=== PATIENT | female | born 2000 | race Caucasian/White ===

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

== ENCOUNTER 2022-05-24 15:20 | Observation (INO) | payer MEDICAID ==
[~2022-05-24] VITALS: Ht 144.8 cm; Wt 55.8 kg
[2022-05-24 17:28] VITALS: BP 114/70
[2022-05-24] MEDS ORDERED: CELESTONE SOLUSPAN 6 MG/ML 5ML VIAL IM SCH (17:30)
[2022-05-24] MEDS: LACTATED RINGERS 1000ML 1,000 ML IV SCH ×2 (17:41→18:16)
[2022-05-24 17:43] LABS: APPEARANCE,URINE CLEAR (CLEAR); BILIRUBIN,URINE NEGATIVE (NEGATIVE); COLOR,URINE LIGHT-YELLOW (YELLOW); GLUCOSE, URINE (UA) NEGATIVE (NEGATIVE); KETONES,URINE NEGATIVE (NEGATIVE); LEUKOCYTE ESTERASE ,URINE 75 Leu/uL (NEGATIVE); NITRATE,URINE NEGATIVE (NEGATIVE); OCCULT BLOOD,URINE NEGATIVE (NEGATIVE); PH,URINE 5.5 (5.0-8.0); PROTEIN,URINE NEGATIVE (NEGATIVE); UROBILINOGEN,URINE 0.2 mg/dL (0.2-1.0)
[2022-05-24 17:45] LABS: BACTERIA,URINE RARE /HPF (None Seen); MUCUS,URINE RARE LPF (None Seen); SQUAMOUS EPITHELIAL CELL,UR RARE /HPF (0-2)
[2022-05-24 17:50] LABS: AMPHET/METH SCREEN,URINE NEGATIVE (NEGATIVE); BARBITURATE SCREEN, URINE NEGATIVE (NEGATIVE); BENZODIAZEPINES SCREEN,URINE NEGATIVE (NEGATIVE); CANNABINOID SCREEN,URINE NEGATIVE (NEGATIVE); COCAINE SCREEN,URINE NEGATIVE (NEGATIVE); OPIATE SCREEN,URINE NEGATIVE (NEGATIVE); PHENCYCLIDINE SCREEN,URINE NEGATIVE (NEGATIVE)
[2022-05-25] MEDS ORDERED: LACTATED RINGERS 1000ML 1,000 ML IV PRN (01:30)
[2022-05-25] MEDS ORDERED: PHARMACY COMMUNICATION MISC SCH (08:30)
[2022-05-25] MEDS ORDERED: PANTOPRAZOLE 40 MG TAB DR PO SCH (09:00)
== END 2022-05-25 11:58 | disposition short-term general hospital (02) ==
LOC: EDH 15:20 → LDH 15:21
PROVIDERS: ADMIT Obstetrics & Gynecology; ATTEND Obstetrics & Gynecology
DX: O42.913 Preterm premature rupture of membranes, unspecified as to length of time between rupture and onset of labor, third trimester (principal); Z3A.29 29 weeks gestation of pregnancy; Z79.899 Other long term (current) drug therapy
CPT/HCPCS: 96372; 96361 ×4; 59025; 96360; 80305; 87088; 81001; 76815 ×2; G0378 ×20; G0379; J7120 ×3; J0702

== ENCOUNTER 2022-06-25 12:23 | Observation (INO) | payer MEDICAID ==
[2022-06-25 13:10] LABS: APPEARANCE,URINE CLOUDY (CLEAR); BILIRUBIN,URINE NEGATIVE (NEGATIVE); COLOR,URINE LIGHT-YELLOW (YELLOW); GLUCOSE, URINE (UA) NEGATIVE (NEGATIVE); KETONES,URINE NEGATIVE (NEGATIVE); LEUKOCYTE ESTERASE ,URINE NEGATIVE Leu/uL (NEGATIVE); NITRATE,URINE NEGATIVE (NEGATIVE); OCCULT BLOOD,URINE NEGATIVE (NEGATIVE); PH,URINE 7.5 (5.0-8.0); PROTEIN,URINE NEGATIVE (NEGATIVE); UROBILINOGEN,URINE 0.2 mg/dL (0.2-1.0)
[2022-06-25 13:15] LABS: MUCUS,URINE RARE LPF (None Seen); RBC,URINE 0-1 /HPF (0-1); SQUAMOUS EPITHELIAL CELL,UR MOD /HPF (0-2)
== END 2022-06-25 15:55 | disposition home or self-care (01) ==
LOC: LDH 12:23
PROVIDERS: ADMIT Obstetrics & Gynecology; ATTEND Obstetrics & Gynecology
DX: O36.8130 Decreased fetal movements, third trimester, not applicable or unspecified (principal); O42.913 Preterm premature rupture of membranes, unspecified as to length of time between rupture and onset of labor, third trimester; Z3A.34 34 weeks gestation of pregnancy
CPT/HCPCS: 59025; 81001; 76819; G0378 ×3; G0379

== ENCOUNTER 2022-07-01 23:14 | Observation (INO) | payer MEDICAID ==
[~2022-07-01] VITALS: Ht 144.8 cm; Wt 57.2 kg
[2022-07-01 23:15] VITALS: BP 119/72
[2022-07-01 23:44] LABS: APPEARANCE,URINE CLOUDY (CLEAR); BILIRUBIN,URINE NEGATIVE (NEGATIVE); COLOR,URINE YELLOW (YELLOW); GLUCOSE, URINE (UA) NEGATIVE (NEGATIVE); KETONES,URINE 20 mg/dL (NEGATIVE); LEUKOCYTE ESTERASE ,URINE 250 Leu/uL (NEGATIVE); NITRATE,URINE NEGATIVE (NEGATIVE); OCCULT BLOOD,URINE NEGATIVE (NEGATIVE); PH,URINE 5.5 (5.0-8.0); PROTEIN,URINE 10 mg/dL (NEGATIVE); UROBILINOGEN,URINE 0.2 mg/dL (0.2-1.0)
[2022-07-02] MEDS ORDERED: LACTATED RINGERS 1000ML IV SCH
[2022-07-02 00:06] LABS: MUCUS,URINE FEW LPF (None Seen); SQUAMOUS EPITHELIAL CELL,UR MANY /HPF (0-2)
== END 2022-07-02 00:55 | disposition home or self-care (01) ==
LOC: EDH 23:14 → LDH 23:15
PROVIDERS: ADMIT Obstetrics & Gynecology; ATTEND Obstetrics & Gynecology
DX: O62.9 Abnormality of forces of labor, unspecified (principal); Z3A.35 35 weeks gestation of pregnancy
CPT/HCPCS: 87088; 81001; 96360; G0379; G0378

== ENCOUNTER 2022-07-17 12:39 | Observation (INO) | payer MEDICAID ==
[2022-07-17] MEDS: LACTATED RINGERS 1000ML IV PRN ×2 (13:20→14:05)
[2022-07-17 13:51] LABS: APPEARANCE,URINE CLEAR (CLEAR); BILIRUBIN,URINE NEGATIVE (NEGATIVE); COLOR,URINE YELLOW (YELLOW); GLUCOSE, URINE (UA) NEGATIVE (NEGATIVE); KETONES,URINE NEGATIVE (NEGATIVE); LEUKOCYTE ESTERASE ,URINE 25 Leu/uL (NEGATIVE); NITRATE,URINE NEGATIVE (NEGATIVE); OCCULT BLOOD,URINE NEGATIVE (NEGATIVE); PH,URINE 5.5 (5.0-8.0); PROTEIN,URINE 10 mg/dL (NEGATIVE); UROBILINOGEN,URINE 0.2 mg/dL (0.2-1.0)
[2022-07-17 13:58] LABS: BACTERIA,URINE RARE /HPF (None Seen); MUCUS,URINE RARE LPF (None Seen); SQUAMOUS EPITHELIAL CELL,UR MOD /HPF (0-2)
== END 2022-07-17 17:59 | disposition home or self-care (01) ==
LOC: LDH 12:39
PROVIDERS: ADMIT Obstetrics & Gynecology; ATTEND Obstetrics & Gynecology
DX: O62.9 Abnormality of forces of labor, unspecified (principal); O26.893 Other specified pregnancy related conditions, third trimester; R20.0 Anesthesia of skin; Z3A.37 37 weeks gestation of pregnancy
CPT/HCPCS: 96361 ×2; 59025; 96360; 81001; 76819; G0378 ×5; G0379; J7120

== ENCOUNTER 2024-06-11 18:23 | Emergency (ER) | payer MEDICAID ==
[~2024-06-11] VITALS: Ht 149.9 cm; Wt 56.7 kg
[2024-06-11] MEDS: FAMOTIDINE 20MG VIAL IV STA (18:51)
[2024-06-11] MEDS: 0.9%NACL 1000ML 1,000 ML IV STA (18:51)
[2024-06-11] MEDS: ondanSETRON 4MG INJ IVP STA (18:51)
--- NOTE | 2024-06-11 19:05 | ERN ---
ED Note History of Present Illness Stated Complaint: , VOMITING, DIZZINESS Chief Complaint: Nausea,Vomiting,Diarrhea Time Seen by MD: 18:25 Time Seen by Midlevel: 18:30 Dictation: 24-year-old female coming in for nausea vomiting onset today. Patient states she is 14 weeks . LMP is 03/04/2024. Patient states she has done here visiting from [place], states her OBGYN is from there. Patient states she has also had diarrhea for the last couple of days. States today she has had one episode of loose stool, nonbloody. Surgical history of the tonsillectomy and appendectomy. Denies any complaints, no abdominal pain, no vaginal bleeding vaginal discharge. Allergies: Coded Allergies: montelukast (Unverified Allergy, Intermediate, nosebleeds, 05/24/13) Past Medical History Past Medical History: No Pertinent History Surgical History: Appendectomy, Tonsillectomy : 1 Para: 0 Aborts: 0 Review of System Dictation Constitutional: Negative for fever,chills, and weight loss Eyes: Negative for injury, pain,redness, and discharge ENT: Negative for injury,pain or swelling Cardiovascular: Negative for chest pain, palpitations, and edema Respiratory: Negative for shortness of breath, cough, and wheezing, Abdomen/GI: Negative for abdominal pain, positive for nausea, vomiting, diarrhea, Back: Negative for injury and pain : Negative for injury, bleeding and discharge MS/Extremity: Negative for injury and deformity Skin: Negative for rash, and discoloration Neuro: Negative for headache, weakness, numbness, tingling, and seizure Psych: Negative for suicide ideation, homicidal ideation, and hallucinations Review of Systems: was completed Initial Vital Sign VS Vital Signs Date Time Temp Pulse Resp B/P (MAP) Pulse Ox O2 Delivery O2 Flow Rate FiO2 06/11/24 18:35 98.1 107 16 105/76 99 Room Air 0 06/11/24 19:15 21 Physical Exam Dictation General: awake, alert, NAD Head/Face: Normocephalic, atraumatic Eyes: PERRL, EOMI, vision at baseline ENT: oral cavity clear, TMs clear, no signs of infection Neck: Trachea midline, supple, no nuchal rigidity Cardiovascular: RRR, normal S1/S2, No MRGs, no JVD Respiratory: CTAB, no respiratory distress, No rales or wheezes Abdomen: Soft, non-tender, non-distended, normal bowel sounds, no guarding or rebound. Skin: Warm, dry, normal turgor, no rash MS/Extremity: Pulses equal, no cyanosis, neurovascular intact, FROM Neuro: COAx4, GCS 15, strength 5/5, CN 2-12 intact, normal cerebellar exam, normal gait, Psych: Normal behavior, mood, and affect normal Results (Laboratory/Radiology) Laboratory/Radiology Laboratory Tests Test 06/11/24 18:56 White Blood Count 11.5 K/uL (4.8-10.8) H Red Blood Count 4.86 MIL/uL (4.00-5.50) Hemoglobin 12.9 g/dL (12.0-16.0) Hematocrit 38.8 % (36-48) Mean Corpuscular Volume 79.8 fL (79-99) Mean Corpuscular Hemoglobin 26.5 pg (27.0-33.0) L Mean Corpuscular Hemoglobin Concent 33.2 g/dL (32.0-36.0) Red Cell Distribution Width 13.5 % (11.0-15.5) Platelet Count 332 K/uL (130-400) Mean Platelet Volume 11.2 fL (7.5-10.5) H Immature Granulocyte % (Auto) 0.3 % (0-1) Neutrophils (%) (Auto) 81.5 % (40.0-77.0) H Lymphocytes (%) (Auto) 11.9 % (21.0-51.0) L Monocytes (%) (Auto) 6.1 % (3.0-13.0) Eosinophils (%) (Auto) 0.0 % (0.0-8.0) Basophils (%) (Auto) 0.2 % (0.0-5.0) Neutrophils # (Auto) 9.4 K/uL (1.8-7.7) H Lymphocytes # (Auto) 1.4 K/uL (1.0-4.8) Monocytes # (Auto) 0.7 K/uL (0.1-1.0) Eosinophils # (Auto) 0.00 K/uL (0.00-0.70) Basophils # (Auto) 0.02 K/uL (0.00-0.20) Absolute Immature Granulocyte (auto 0.04 K/uL (0-1) Nucleated Red Blood Cells 0.0 % (0.0-0.19) Urine Color YELLOW (YELLOW) Urine Appearance TURBID (CLEAR) Urine pH 5.5 (5.0-8.0) Urine Specific [place] 1.031 (1.001-1.031) Urine Protein 50 mg/dL (NEGATIVE) H Urine Glucose (UA) NEGATIVE mg/dL (NEGATIVE) Urine Ketones 150 mg/dL (NEGATIVE) H Urine Occult Blood NEGATIVE (NEGATIVE) Urine Nitrate NEGATIVE (NEGATIVE) Urine Bilirubin NEGATIVE mg/dL (NEGATIVE) Urine Urobilinogen 0.2 mg/dL (0.2-1.0) Urine Leukocyte Esterase 500 [place]/uL (NEGATIVE) H Urine RBC 2-5 /HPF (0-1) H Urine WBC >100 /HPF (0-1) H Urine WBC Clumps (Auto) RARE /HPF (0-1) Urine Squamous Epithelial Cells MOD /HPF (0-2) Urine Bacteria FEW /HPF (None Seen) Sodium Level 136 mmol/L (136-145) Potassium Level 3.6 mmol/L (3.5-5.1) Chloride Level 101 mmol/L (101-111) Carbon Dioxide Level 26 mmol/L (21-32) Blood Urea Nitrogen 5 mg/dL (7-18) L Creatinine 0.5 mg/dL (0.5-1.0) Glomerular Filtration Rate Calc 135 mL/min (>90) Random Glucose 91 mg/dL (70-105) Total Calcium 9.3 mg/dL (8.5-10.1) Total Bilirubin 0.4 mg/dL (0.2-1.0) Direct Bilirubin 0.1 mg/dL (0.0-0.3) Aspartate Amino Transf (AST/SGOT) 16 U/L (10-37) Alanine Aminotransferase (ALT/SGPT) 22 U/L (12-78) Alkaline Phosphatase 97 U/L (50-136) Total Protein 8.3 g/dL (6.0-8.3) Albumin 3.7 g/dL (3.5-5.0) Lipase 30 U/L (16-77) Labs Reviewed?: Yes ED Course ED Course Orders Procedure Category Date Status Time Cbc With Differential LAB 06/11/24 Complete 18:37 Basic Metabolic Panel LAB 06/11/24 Complete 18:37 Hepatic Function Panel LAB 06/11/24 Complete 18:37 Lipase LAB 06/11/24 Complete 18:37 Urinalysis Profile LAB 06/11/24 Complete 18:37 0.9%Nacl 1000ml (Ns PHA 06/11/24 Complete 1000ml) 18:37 Ondansetron 4mg Inj PHA 06/11/24 Complete (Zofran 4mg Inj) 18:37 Famotidine 20mg Vial PHA 06/11/24 Complete (Pepcid 20mg Vial) 18:37 *Nursing CPOE 06/11/24 Transmitted Communication: 18:41 Culture Urine EULA 06/11/24 In Process 19:12 Ceftriaxone 1g Vial PHA 06/11/24 Complete (Rocephine 1g Inj) 19:21 Us Ob >14 Weeks 06/11/24 Taken 19:24 Current Medications Medications (Trade) Dose Ordered Sig/Chantale Route PRN Reason Start Time Stop Time Status Last Admin Dose Admin Ceftriaxone Sodium (ROCEphine 1G INJ) 1 gm ONCE STAT IVPB 06/11/24 19:21 06/11/24 19:23 DC 06/11/24 19:47 Famotidine (Pepcid 20mg Vial) 20 mg ONCE STAT IV 06/11/24 18:37 06/11/24 18:40 DC 06/11/24 18:51 Ondansetron HCl (zoFRAN 4MG INJ) 4 mg ONCE STAT IVP 06/11/24 18:37 06/11/24 18:40 DC 06/11/24 18:51 Sodium Chloride 1,000 ml @ 1,000 mls/hr Q1H STAT IV 06/11/24 18:37 06/11/24 19:36 DC 06/11/24 18:51 Vital Signs Date Time Temp Pulse Resp B/P (MAP) Pulse Ox O2 Delivery O2 Flow Rate FiO2 06/11/24 19:15 98.1 80 17 111/63 100 Room Air* 0 21 06/11/24 18:35 98.1 107 16 105/76 99 Room Air 0 Medical Decision Making MDM MDM: 24-year-old female coming in for nausea vomiting onset today. Patient states she is 14 weeks . LMP is 03/04/2024. Patient states she has done here visiting from [place], states her OBGYN is from there. Patient states she has also had diarrhea for the last couple of days. States today she has had one episode of loose stool, nonbloody. Surgical history of the tonsillectomy and appendectomy. Denies any complaints, no abdominal pain, no vaginal bleeding vaginal discharge. 192, upon reassessment patient was now mentioning she was told yesterday she had placenta previa. Ultrasound ordered at this time. Differential diagnosis: Dehydration, electrolyte abnormality, EDIE Rationale: Tests considered and ordered secondary to shared decision making include: Previous outside records reviewed: Old ER visits. Risk of complication and/or morbidity or mortality of patient management: None Medications-Per medication reconciliation Need for hospitalization: Patient does not meet criteria for hospitalization. Need for emergency major/minor surgery: No There are no social concerns with this patient. Prescription drug management Prescriptions will include symptomatic care Patient's prior external medical records from other ER visits were reviewed by me as indicated. Prior testing and results from previous visits were reviewed. Prior tests were taken into account with medical decision making and resource utilization, independent historian/historians were used to obtain complete medical history. I independently interpreted the test that were performed, results were reviewed by me and considered findings on radiology if ordered. Medical management and examination interpretation discussions were had by me with other qualified healthcare professionals as indicated for the patient's care. Patient does have a urinary tract infection we started an infusion of Rocephin and the patient immediately noticed some chest pain and so EKG was obtained which showed normal sinus rhythm in the antibiotic was stopped. The patient says she feels better now the ultrasound today shows no placenta previa. I will discharge the patient from the emergency room with a prescription for Macrobid and a prescription for Zofran as well. DX & DISP Disposition: Discharge Departure Impression: Primary Impression: UTI (urinary tract infection) Condition: Stable Scripts Ondansetron (Ondansetron Odt) 4 Mg Tab.rapdis 1 TAB PO Q6HPRN PRN for nausea/vomiting for 4 Days, #16 TAB 0 Refills Prov: DINESH ROUSSEAU MD 06/11/24 Nitrofurantoin Monohyd/M-Cryst (Macrobid 100 mg Capsule) 100 Mg Capsule 1 CAP PO BID for 7 Days, #14 CAP 0 Refills Prov: DINESH ROUSSEAU MD 06/11/24 Additional Instructions: If your nausea and vomiting does not improve with the antibiotic please come [place] to the emergency room. In addition continued to have your regular appointments with your data entry technician to monitor the placenta previa. Referrals: ENID NEFF (PCP) EMILY OSORIO NP June 11, 2024 19:05 DINESH ROUSSEAU MD June 11, 2024 20:56
[2024-06-11 19:08] LABS: APPEARANCE,URINE TURBID (CLEAR); BILIRUBIN,URINE NEGATIVE (NEGATIVE); COLOR,URINE YELLOW (YELLOW); GLUCOSE, URINE (UA) NEGATIVE (NEGATIVE); KETONES,URINE 150 mg/dL (NEGATIVE); LEUKOCYTE ESTERASE ,URINE 500 Leu/uL (NEGATIVE); NITRATE,URINE NEGATIVE (NEGATIVE); OCCULT BLOOD,URINE NEGATIVE (NEGATIVE); PH,URINE 5.5 (5.0-8.0); PROTEIN,URINE 50 mg/dL (NEGATIVE); UROBILINOGEN,URINE 0.2 mg/dL (0.2-1.0)
--- NOTE | 2024-06-11 19:09 | NUR ---
PT CARE ASSUMED AT THIS TIME
[2024-06-11 19:10] LABS: BASOPHILS # (AUTO) 0.02 K/uL (0.00-0.20); BASOPHILS % (AUTO) 0.2 % (0.0-5.0); HEMATOCRIT 38.8 % (36-48); IMMATURE GRANULOCYTE ABSOLUTE 0.04 K/uL (0-1); LYMPHOCYTES # (AUTO) 1.4 K/uL (1.0-4.8); LYMPHOCYTES % (AUTO) 11.9 % (21.0-51.0); MEAN CORPUSCULAR HEMOGLOBIN 26.5 pg (27.0-33.0); MEAN CORPUSCULAR HGB CONC 33.2 g/dL (32.0-36.0); MEAN CORPUSCULAR VOLUME 79.8 fL (79-99); MONOCYTES # (AUTO) 0.7 K/uL (0.1-1.0); MONOCYTES % (AUTO) 6.1 % (3.0-13.0); NEUTROPHILS # (AUTO) 9.4 K/uL (1.8-7.7); NEUTROPHILS % (AUTO) 81.5 % (40.0-77.0); PLATELET COUNT (AUTO) 332 K/uL (130-400); RED BLOOD CELL COUNT(AUTO) 4.86 MIL/uL (4.00-5.50); RED CELL DISTRIBUTION WIDTH 13.5 % (11.0-15.5); WHITE BLOOD COUNT (AUTO) 11.5 K/uL (4.8-10.8)
[2024-06-11 19:12] LABS: ADD UA MICROSCOPIC YES
[2024-06-11 19:14] LABS: CREATININE 0.5 mg/dL (0.5-1.0); POTASSIUM 3.6 mmol/L (3.5-5.1)
[2024-06-11 19:16] LABS: BACTERIA,URINE FEW /HPF (None Seen); MUCUS,URINE FEW LPF (None Seen); SQUAMOUS EPITHELIAL CELL,UR MOD /HPF (0-2); WBC CLUMP RARE /HPF (0-1); WBC,URINE >100 /HPF (0-1)
[2024-06-11 19:19] LABS: ALBUMIN 3.7 g/dL (3.5-5.0); BILIRUBIN,DIRECT 0.1 mg/dL (0.0-0.3); BILIRUBIN,TOTAL 0.4 mg/dL (0.2-1.0); TOTAL PROTEIN, SERUM 8.3 g/dL (6.0-8.3)
[2024-06-11] MEDS: cefTRIAXone 1G VIAL IVPB STA (19:47)
--- NOTE | 2024-06-11 20:22 | NUR ---
PT VOICED CHEST PAIN AND SOB AT THIS TIME. ROCEPHIN MEDICATION STOPPED. PT PLACED ON 2L NC AND EKG DONE. EKG GIVEN TO ED MD LAZAR. NO ORDERS GIVEN. AFTER INTERVENTIONS PT REPORTS NO CHEST PAIN. PT SHOWS NO SIGNS OF DISTRESS.
--- NOTE | 2024-06-11 20:54 | HMCIMG ---
US OB >14 WEEKS HISTORY: abdominal pain, hx placenta previa COMPARISON: None FINDINGS: There is anglin vertex presentation intrauterine gestation with positive activity and heart rate of 131 bpm. The amniotic fluid index measures 5.5 cm. The placenta is anteriorly positioned grade 2 maturity. The anatomic survey appears unremarkable. The estimated weight is 313 1 g +/- 4 5 7 g per this composite age 37 week and 1 day old fetus +/- 21 days. The head circumference to abdominal circumference ratio measures 0.8 and 8. The cephalic index measures 80.2 percentile. IMPRESSION: Anglin viable intrauterine gestation with positive heart tones, unremarkable anatomic survey and estimated weight of 313 1 g +/- 4 and 57 g for this 37 week and 1 day old fetus +/- 21 days.
[2024-06-11] MEDS ORDERED: NITR100C4 PO (20:55)
[2024-06-11] MEDS ORDERED: ONDA-243 PO (20:55)
[2024-06-11 21:07] VITALS: BP 103/68; PULSE 96; RESP 14; TEMP 98.1; O2SAT 99
--- NOTE | 2024-06-12 08:49 | EKG ---
[facility] Test Date: 2024-06-11 Test Time: 20:22:42 Pat Name: AXEL NOVAK Department: ED Room: Gender: F Validation Intern: [id number] : 2000 Requested By: DINESH ROUSSEAU Order Number: [id number] Reading MD: Pedro Luis Anne Measurements Intervals [place] Rate: 74 P: 33 FL: 136 QRS: 87 QRSD: 91 T: 2 QT: 357 QTc: 397 Interpretive Statements Sinus rhythm No previous ECG available for comparison Electronically Signed On 06-12-2024 12:52:07 CDT by Pedro Luis Anne Please click the below link to view image of tracing.
== END 2024-06-11 21:26 | disposition home or self-care (01) ==
LOC: EDH 18:23
DX: O23.42 Unspecified infection of urinary tract in pregnancy, second trimester (principal); N39.0 Urinary tract infection, site not specified; Z3A.14 14 weeks gestation of pregnancy; Z90.49 Acquired absence of other specified parts of digestive tract; Z90.89 Acquired absence of other organs
CPT/HCPCS: 99285; 96374; 76805; 96375; 96361; 80076; 80048; 83690; 85025; 87086; 81001; 36415; 93005; J3490; J7030; J0696; J2405